=== PATIENT | female | born 1955 | race Caucasian/White ===

== ENCOUNTER 2017-04-30 22:37 | Emergency (ER) | payer BC ==
[~2017-04-30] VITALS: Ht 160 cm; Wt 67.1 kg
[~2017-04-30 22:37] MED LIST: CHOL400D8 PO; FLUC50TA3 PO; MAGN30TA PO; VITA1TAB60 PO; ZINC50TA2 PO; [UNRECOGNIZED DRUG - OTHER]; [UNRECOGNIZED DRUG - REMARK]
[2017-04-30 22:45] VITALS: BP 149/87
--- NOTE | 2017-04-30 23:09 | PHYS DOC ---
Past Medical History Past Medical History: Other Additional Past Medical Histor: CHRONES Past Surgical History: Cholecystectomy Additional Past Surgical Histo: LEFT OVARY AND FALLOPIAN TUBE REMOVE, LEFT KNEE , THROAT STRETCH Alcohol Use: None Drug Use: None Adult General Chief Complaint Chief Complaint: FOREIGN BODY HPI HPI Patient is a 62 year old female with a history of crohns disease presents to the ED complaining of something stuck in her throat. States she was eating boneless chicken and when she swallowed it, she felt it get stuck in her throat. Patient states she called her primary care doctor who told her to try some applesauce. Patient was able to chop of pieces of an apple with some oil and swallow the pieces. Patient has been tolerating solids and liquids. Patient had a procedure for esophageal stretching done a few years ago by her GI doctor. Describes the pain as uncomfortable. Rates the pain as 3 out of 10. Denies fever, difficulty breathing, difficulty swallowing, tongue swelling, nausea/vomiting, abdominal pain, chest pain or shortness of breath. Review of Systems Review of Systems Constitutional: Denies fever or chills [] Eyes: Denies change in visual acuity, redness, or eye pain [] HENT: Denies nasal congestion or sore throat [] Respiratory: Denies cough or shortness of breath [] Cardiovascular: No additional information not addressed in HPI [] GI: Denies abdominal pain, nausea, vomiting, bloody stools or diarrhea [] : Denies dysuria or hematuria [] Musculoskeletal: Denies back pain or joint pain [] Integument: Denies rash or skin lesions [] Neurologic: Denies headache, focal weakness or sensory changes [] Endocrine: Denies polyuria or polydipsia [] All other systems were reviewed and found to be within normal limits, except as documented in this note. Allergies Allergies Allergies Coded Allergies Type Severity Reaction Last Updated Verified Tetracyclines Allergy Unknown skin dryness 11/22/13 No hydrocodone Allergy Unknown nausea, faint 11/22/13 No Uncoded Allergies Type Severity Reaction Last Updated Verified capadex Allergy Unknown nausea 11/22/13 Physical Exam Physical Exam Constitutional: Well developed, well nourished, no acute distress, non-toxic appearance. [] HENT: Normocephalic, atraumatic, oropharynx moist Neck: Normal range of motion, no tenderness, supple, no stridor. No palpable foreign body. [] Cardiovascular:Heart rate regular rhythm, no murmur [] Lungs & Thorax: Bilateral breath sounds clear to auscultation [] Abdomen: Bowel sounds normal, soft, no tenderness, no masses, no pulsatile masses. [] Neurologic: Alert and oriented X 3, normal motor function, normal sensory function, no focal deficits noted. [] Psychologic: Affect normal, judgement normal, mood normal. [] Current Patient Data Vital Signs Vital Signs Date Time Temp Pulse Resp B/P (MAP) Pulse Ox O2 Delivery O2 Flow Rate FiO2 04/30/17 22:45 98.2 71 20 98 Room Air 98.2 EKG EKG [] Radiology/Procedures Radiology/Procedures [] Course & Med Decision Making Course & Med Decision Making Pertinent Labs and Imaging studies reviewed. (See chart for details) [] Patient willing to try coca cola in exam room. Patient able to talk, denies difficulty swallowing, difficulty breathing. Patient tolerating liquids and solids. Discussed with patient that we could try IV glucagon, imaging, admit her to the hospital and consult all GI doctor to see her but patient refused. Patient states she has a good relationship with her PCP doctor and sees a GI doctor outpatient. States she can get in to see one of them tomorrow. Discussed the importance of follow-up and reasons to return to the ED. Patient understands and agrees with plan. --- I saw this patient with the PA. I saw & examined her myself. She has sensation of esophageal food impaction but tolerating oral intake. No respiratory symptoms. Prior esophageal stricture requiring GI dilatation. She was able to tolerate fluids here. [place]min[place] improvement of her symptoms. We discussed possibility of admission for GI consult, possible endoscopy in the AM , but she tolerates PO & prefers to follow up as an outpatient. Recommend rest , hydration, contact PCP & GI in the morning. Come back for difficulty breathing, inability to tolerate oral intake, any otherwise worsening condition. Discharged home in stable condition. Agree with plan. Bridgette Silvestre Disclaimer Nirmala Disclaimer This electronic medical record was generated, in whole or in part, using a voice recognition dictation system. Departure Departure Impression: Primary Impression: Foreign body in throat Disposition: 01 HOME, SELF-CARE Condition: IMPROVED Referrals: JOSE KWONG Jr, MD (PCP) MAI PARSONS MD Patient Instructions: Swallowed Foreign Body, Adult MILDENBERGER,ESTER PA Apr 30, 2017 23:09 BRIDGETTE SILVA MD May 03, 2017 09:10
== END 2017-04-30 23:49 | disposition home or self-care (01) ==
LOC: ER 22:37
DX: T17.228A Food in pharynx causing other injury, initial encounter (principal); Z90.49 Acquired absence of other specified parts of digestive tract; Z88.1 Allergy status to other antibiotic agents; Z88.5 Allergy status to narcotic agent; Z88.8 Allergy status to other drugs, medicaments and biological substances; X58.XXXA Exposure to other specified factors, initial encounter; Y93.89 Activity, other specified; Y92.89 Other specified places as the place of occurrence of the external cause; Y99.8 Other external cause status
CPT/HCPCS: 99281

== ENCOUNTER 2018-04-29 18:30 | Emergency (ER) | payer BC ==
[~2018-04-29] VITALS: Ht 160 cm; Wt 68.0 kg
[2018-04-29 18:36] VITALS: BP 193/95
[2018-04-29] MEDS ORDERED: ASPIRIN 325 MG TABLET PO ONE (19:00)
--- NOTE | 2018-04-29 19:30 | RAD ---
Examination: PORTABLE CHEST 1V History: Chest pain Comparison/Correlation: 06/24/2015 CT chest without contrast Findings: Portable frontal view of the chest was obtained. Heart size and pulmonary vasculature are normal. No infiltrate or pleural effusion. Old right upper rib fractures are present. Right upper quadrant surgical clips noted. Impression: No active disease. Electronically signed by: Rivera Bernal MD (04/29/2018 7:26 PM) [facility]
[2018-04-29 19:42] LABS: BILIRUBIN,URINE NEGATIVE (NEG); CLARITY,URINE CLEAR; COLOR,URINE YELLOW; NITRITE,URINE NEGATIVE (NEG); PROTEIN,URINE NEGATIVE (NEG-TRACE); UROBILINOGEN,URINE 0.2 mg/dL (0.2 mg/dL)
[2018-04-29 19:47] LABS: BARBITURATES NEG (NEG); BENZODIAZEPINES NEG (NEG); CANNABINOIDS NEG (NEG); COCAINE NEG (NEG); METHADONE NEG (NEG); OPIATES NEG (NEG); PHENCYCLIDINE NEG (NEG)
[2018-04-29 19:50] LABS: AMPHETAMINE/METHAMPHETAMINE NEG (NEG)
[2018-04-29 19:59] LABS: BACTERIA,URINE 0 /HPF (0-FEW); RBC,URINE 0 /HPF (0-2); SQUAMOUS EPITHELIAL CELL,UR OCC /LPF; WBC,URINE OCC /HPF (0-4)
[2018-04-29 20:12] LABS: BASO # 0.1 x10^3/uL (0.0-0.2); BASO % 1 % (0-3); EOS # 0.1 x10^3/uL (0.0-0.7); EOS % 1 % (0-3); HEMATOCRIT 43.4 % (36.0-47.0); HEMOGLOBIN 15.2 g/dL (12.0-15.5); LYMPH # 1.6 x10^3/uL (1.0-4.8); LYMPH % 26 % (24-48); MEAN CORPUSCULAR HEMOGLOBIN 34 pg (25-35); MEAN CORPUSCULAR HGB CONC 35 g/dL (31-37); MEAN CORPUSCULAR VOLUME 98 fL (79-100); MONO # 0.6 x10^3/uL (0.0-1.1); MONO % 9 % (0-9); NEUT % 64 % (31-73); PLATELET COUNT 265 x10^3/uL (140-400); RED BLOOD COUNT 4.43 x10^6/uL (3.50-5.40); RED CELL DISTRIBUTION WIDTH 13.2 % (11.5-14.5); WHITE BLOOD COUNT 6.2 x10^3/uL (4.0-11.0)
[2018-04-29 20:18] LABS: CALCIUM 9.1 mg/dL (8.5-10.1); CREATININE 0.8 mg/dL (0.6-1.0); GFR 72.7; POTASSIUM 3.9 mmol/L (3.5-5.1); PROTHROMBIN TIME PATIENT 12.7 SEC (11.7-14.0)
[2018-04-29 20:23] LABS: ALBUMIN 3.8 g/dL (3.4-5.0); TOTAL BILIRUBIN 0.5 mg/dL (0.2-1.0); TOTAL PROTEIN 7.7 g/dL (6.4-8.2)
--- NOTE | 2018-04-29 21:39 | RAD ---
Examination: CT HEAD WO CONTRAST History: lt arm numbness today, prior sent Comparison/Correlation: 11/22/2013 CT head without contrast Findings: Axial images of the head were obtained without contrast. Ventricles are normal size. No intracranial hemorrhage, midline shift, or mass effect. No depressed fracture. Globes and optic nerves are unremarkable. Impression: Normal CT head without contrast. Electronically signed by: Rivera Bernal MD (04/29/2018 9:35 PM) [facility]
--- NOTE | 2018-04-29 22:05 | PHYS DOC ---
Past Medical History Past Medical History: Anxiety, Other Additional Past Medical Histor: CHRONES Past Surgical History: Cholecystectomy Additional Past Surgical Histo: LEFT OVARY AND FALLOPIAN TUBE REMOVE, LEFT KNEE , THROAT STRETCH Alcohol Use: Rarely Drug Use: None Adult General Chief Complaint Chief Complaint: CHEST PAIN HPI HPI Patient is a 63 year old female with history of anxiety, who presents today complaining of 6 out of 10 mid substernal chest tightness that began at 5:45pm this evening when she was at the store. Patient states she also experienced numbness to the left upper extremity. Denies any shortness of breath. Denies any headache. She states she has history of anxiety and is not sure if this is an anxiety episode on not. She states she is follows up with a osteopathic doctor who took her off her anxiety medicines and most of the medications she was on before. She states her symptoms have resolved but would like to be checked out Review of Systems Review of Systems Constitutional: Denies fever or chills [] Eyes: Denies change in visual acuity, redness, or eye pain [] HENT: Denies nasal congestion or sore throat [] Respiratory: Denies cough or shortness of breath [] Cardiovascular: Reports chest tightness GI: Denies abdominal pain, nausea, vomiting, bloody stools or diarrhea [] : Denies dysuria or hematuria [] Musculoskeletal: Denies back pain or joint pain [] Integument: Denies rash or skin lesions [] Neurologic: Reports left upper extremity numbness Denies headache, focal weakness or sensory changes [] All other systems were reviewed and found to be within normal limits, except as documented in this note. Current Medications Current Medications Current Medications Medications (Trade) Dose Ordered Sig/[facility] Start Time Stop Time Status Last Admin Dose Admin Aspirin (Nadine Aspirin) 325 mg 1X ONCE 04/29/18 19:00 04/29/18 19:02 DC 04/29/18 20:05 325 MG Allergies Allergies Allergies Coded Allergies Type Severity Reaction Last Updated Verified Tetracyclines Allergy Unknown skin dryness 11/22/13 No hydrocodone Allergy Unknown nausea, faint 11/22/13 No dexlansoprazole Adverse Reaction Intermediate Nausea 04/29/18 No Physical Exam Physical Exam Constitutional: Well developed, well nourished, no acute distress, non-toxic appearance. [] HENT: Normocephalic, atraumatic, bilateral external ears normal, oropharynx moist, no oral exudates, nose normal. [] Eyes: PERRLA, EOMI, conjunctiva normal, no discharge. [] Neck: Normal range of motion, no tenderness, supple, no stridor. [] Cardiovascular:Heart rate regular rhythm, no murmur [] Lungs & Thorax: Bilateral breath sounds clear to auscultation [] Abdomen: Bowel sounds normal, soft, no tenderness, no masses, no pulsatile masses. [] Skin: Warm, dry, no erythema, no rash. [] Back: No tenderness, no CVA tenderness. [] Extremities: No tenderness, no cyanosis, no clubbing, ROM intact, no edema. [] Neurologic: Alert and oriented X 3, normal motor function, normal sensory function, no focal deficits noted. Cranial nerves II through XII intact Psychologic: Affect normal, judgement normal, mood normal. [] Current Patient Data Vital Signs Vital Signs Date Time Temp Pulse Resp B/P (MAP) Pulse Ox O2 Delivery O2 Flow Rate FiO2 04/29/18 18:36 97.7 73 16 193/95 (127) 99 Room Air 97.7 Lab Values Laboratory Tests Test 04/29/18 19:25 04/29/18 20:00 Urine Collection Type Unknown Urine Color Yellow Urine Clarity Clear Urine pH 7.0 Urine Specific Delta 1.010 Urine Protein Negative mg/dL (NEG-TRACE) Urine Glucose (UA) Negative mg/dL (NEG) Urine Ketones (Stick) Trace mg/dL (NEG) Urine Blood Negative (NEG) Urine Nitrite Negative (NEG) Urine Bilirubin Negative (NEG) Urine Urobilinogen Dipstick 0.2 mg/dL (0.2 mg/dL) Urine Leukocyte Esterase Trace (NEG) Urine RBC 0 /HPF (0-2) Urine WBC Occ /HPF (0-4) Urine Squamous Epithelial Cells Occ /LPF Urine Bacteria 0 /HPF (0-FEW) Urine Opiates Screen Neg (NEG) Urine Methadone Screen Neg (NEG) Urine Barbiturates Neg (NEG) Urine Phencyclidine Screen Neg (NEG) Urine Amphetamine/Methamphetamine Neg (NEG) Urine Benzodiazepines Screen Neg (NEG) Urine Cocaine Screen Neg (NEG) Urine Cannabinoids Screen Neg (NEG) Urine Ethyl Alcohol Neg (NEG) White Blood Count 6.2 x10^3/uL (4.0-11.0) Red Blood Count 4.43 x10^6/uL (3.50-5.40) Hemoglobin 15.2 g/dL (12.0-15.5) Hematocrit 43.4 % (36.0-47.0) Mean Corpuscular Volume 98 fL (79-100) Mean Corpuscular Hemoglobin 34 pg (25-35) Mean Corpuscular Hemoglobin Concent 35 g/dL (31-37) Red Cell Distribution Width 13.2 % (11.5-14.5) Platelet Count 265 x10^3/uL (140-400) Neutrophils (%) (Auto) 64 % (31-73) Lymphocytes (%) (Auto) 26 % (24-48) Monocytes (%) (Auto) 9 % (0-9) Eosinophils (%) (Auto) 1 % (0-3) Basophils (%) (Auto) 1 % (0-3) Neutrophils # (Auto) 4.0 x10^3uL (1.8-7.7) Lymphocytes # (Auto) 1.6 x10^3/uL (1.0-4.8) Monocytes # (Auto) 0.6 x10^3/uL (0.0-1.1) Eosinophils # (Auto) 0.1 x10^3/uL (0.0-0.7) Basophils # (Auto) 0.1 x10^3/uL (0.0-0.2) Prothrombin Time 12.7 SEC (11.7-14.0) Prothrombin Time INR 1.0 (0.8-1.1) Sodium Level 141 mmol/L (136-145) Potassium Level 3.9 mmol/L (3.5-5.1) Chloride Level 104 mmol/L (98-107) Carbon Dioxide Level 28 mmol/L (21-32) Anion Gap 9 (6-14) Blood Urea Nitrogen 14 mg/dL (7-20) Creatinine 0.8 mg/dL (0.6-1.0) Estimated GFR (Cockcroft-Gault) 72.7 BUN/Creatinine Ratio 18 (6-20) Glucose Level 91 mg/dL (70-99) Calcium Level 9.1 mg/dL (8.5-10.1) Magnesium Level 2.0 mg/dL (1.8-2.4) Total Bilirubin 0.5 mg/dL (0.2-1.0) Aspartate Amino Transferase (AST) 19 U/L (15-37) Alanine Aminotransferase (ALT) 22 U/L (14-59) Alkaline Phosphatase 108 U/L (46-116) Troponin I Quantitative < 0.017 ng/mL (0.000-0.055) OB-Ijs-E-Type Natriuretic Peptide 146 pg/mL (0-124) H Total Protein 7.7 g/dL (6.4-8.2) Albumin 3.8 g/dL (3.4-5.0) Albumin/Globulin Ratio 1.0 (1.0-1.7) Laboratory Tests 04/29/18 20:00 Laboratory Tests 04/29/18 20:00 EKG EKG 18:[address] Garcia sinus rhythm heart rate 66 no STEMI[] Radiology/Procedures Radiology/Procedures []PROCEDURE: CT HEAD WO CONTRAST Examination: CT HEAD WO CONTRAST History: lt arm numbness today, prior sent Comparison/Correlation: 11/22/2013 CT head without contrast Findings: Axial images of the head were obtained without contrast. Ventricles are normal size. No intracranial hemorrhage, midline shift, or mass effect. No depressed fracture. Globes and optic nerves are unremarkable. Impression: Normal CT head without contrast. Electronically signed by: Rivera Bernal MD (04/29/2018 9:35 PM) [facility] DICTATED and SIGNED BY: YUE NÚÑEZ MD DATE: 04/29/182133 PROCEDURE: PORTABLE CHEST 1V Examination: PORTABLE CHEST 1V History: Chest pain Comparison/Correlation: 06/24/2015 CT chest without contrast Findings: Portable frontal view of the chest was obtained. Heart size and pulmonary vasculature are normal. No infiltrate or pleural effusion. Old right upper rib fractures are present. Right upper quadrant surgical clips noted. Impression: No active disease. Electronically signed by: Rivera Bernal MD (04/29/2018 7:26 PM) [facility] DICTATED and SIGNED BY: YUE NÚÑEZ MD DATE: 04/29/181924 Course & Med Decision Making Course & Med Decision Making Pertinent Labs and Imaging studies reviewed. (See chart for details) This is a 63-year-old female patient with history of anxiety presenting to the ED today complaining of chest tightness and numbness to the left upper extremity that occurred at 5:45 PM when she was at the store. Symptoms have resolved. EKG was negative, troponin is normal, CBC CMP with no acute findings. Vitals on arrival blood pressure 193/95 heart rate 97 O2 sats 99% on room air heart rate [address] of the head is negative for any acute findings, chest x-ray is negative. Heart score 2 Results were given to patient. Offered admission, she states she does not want to be admitted, she signed out AMA. The risk of leaving AMA including and disability given Patient came and thanked me stating she thinks she was just anxious trying to get [place] shopping done resulting to symptoms. Dragon Disclaimer Dragon Disclaimer This electronic medical record was generated, in whole or in part, using a voice recognition dictation system. Departure Departure Impression: Primary Impression: Chest pain Additional Impressions: High blood pressure Left upper extremity numbness Disposition: AGAINST MEDICAL ADVICE Condition: STABLE Referrals: LAVERN YAP (PCP) Please follow-up with your doctor as soon as possible Patient Instructions: Chest Pain (Nonspecific), Hypertension, Paresthesia, Easy -to-Read Additional Instructions: You were evaluated in the emergency room for chest tightness and numbness to the upper extremity. We offered you admission you declined. Please come back to the emergency room at any point you feel you need further evaluation. Problem Qualifiers Primary Impression: Chest pain Chest pain type: unspecified Qualified Codes: R07.9 - Chest pain, unspecified Additional Impressions: High blood pressure Hypertension type: unspecified Qualified Codes: I10 - Essential (primary) hypertension ALPHONSO SHEA APRN Apr 29, 2018 22:04
--- NOTE | 2018-04-30 07:10 | EKG ---
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
== END 2018-04-29 22:47 | disposition left against medical advice (07) ==
LOC: ER 18:30
DX: R07.2 Precordial pain (principal); I10 Essential (primary) hypertension; F41.9 Anxiety disorder, unspecified; Z88.1 Allergy status to other antibiotic agents; Z88.5 Allergy status to narcotic agent; Z88.8 Allergy status to other drugs, medicaments and biological substances
CPT/HCPCS: 36415; 70450; 71045; 80053; 80307; 81001; 83735; 83880; 84484; 85025; 85610; 87086; 93005; 99284-25

== ENCOUNTER 2018-10-23 17:02 | Emergency (ER) | payer OTHER, BC ==
[~2018-10-23] VITALS: Ht 160 cm; Wt 65.3 kg
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
[2018-10-23 17:17] VITALS: BP 148/90
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
== END 2018-10-23 18:03 | disposition home or self-care (01) ==
LOC: ER 17:02
DX: S00.03XA Contusion of scalp, initial encounter (principal); F41.9 Anxiety disorder, unspecified; I10 Essential (primary) hypertension; Z90.49 Acquired absence of other specified parts of digestive tract; Z88.1 Allergy status to other antibiotic agents; Z88.5 Allergy status to narcotic agent; Z88.8 Allergy status to other drugs, medicaments and biological substances; V43.52XA Car driver injured in collision with other type car in traffic accident, initial encounter; Y93.89 Activity, other specified; Y92.410 Unspecified street and highway as the place of occurrence of the external cause; Y99.8 Other external cause status
CPT/HCPCS: 70450; 99284-25